=== PATIENT | male | born 2005 | race Caucasian/White ===

== ENCOUNTER 2024-02-22 13:04 | Emergency (ER) | payer MEDICAID ==
[~2024-02-22] VITALS: Ht 172.7 cm; Wt 63.5 kg
[2024-02-22 13:19] VITALS: O2SAT 100
[2024-02-22] MEDS: LIDOCAINE HCL/PF 1% 10 MG/ML 5ML VIAL INFIL ONE (15:00)
[2024-02-22] MEDS: MORPHINE SULFATE 4 MG/ML INJ (FOR IV/IM USE) IV STA (15:04)
[2024-02-22] MEDS: ONDANSETRON HCL 4MG/2ML INJ IV STA (15:04)
[2024-02-22] MEDS: CEFAZOLIN 1000MG PREMIX 50 ML IV ONE (15:34)
[2024-02-22] MEDS: BACITRACIN ZINC OINT UDPKT TOP ONE (15:34)
[2024-02-22] MEDS: TETANUS, DIPHTHERIA, PERTUSSIS VAC/PF 0.5ML (>10YR OLD) IM ONE (15:35)
[2024-02-22 15:41] LABS: BASOPHILS % 0.2 % (0.0-2.0); EOSINOPHILS % 0.8 % (0.0-5.0); HEMATOCRIT. 42.4 % (42.0-52.0); HEMOGLOBIN. 14.1 g/dL (14.0-18.0); LYMPHOCYTES % 21.2 % (20.0-50.0); MEAN CORPUSCULAR HEMOGLOBIN 28.1 pg (28.0-32.0); MEAN CORPUSCULAR HGB CONC 33.1 g/dL (31.0-37.0); MEAN CORPUSCULAR VOLUME 84.7 fL (80.0-94.0); MEAN PLATELET VOLUME 7.5 fl (7.4-10.4); MONOCYTES % 4.9 % (2.0-8.0); NEUTROPHILS % 72.9 % (40.0-76.0); PLATELET 277 x1000/uL (130-400); RED BLOOD CELL COUNT 5.01 mill/uL (4.7-6.1); RED CELL DISTRIBUTION WIDTH 13.6 % (11.6-14.6)
[2024-02-22 15:44] LABS: CHLORIDE 107 mEq/L (98-107); POTASSIUM 3.6 mEq/L (3.5-5.1); SODIUM 139 mEq/L (136-145)
[2024-02-22 15:45] LABS: CARBON DIOXIDE 29 mEq/L (21-32)
[2024-02-22 15:46] LABS: CALCIUM 9.8 mg/dL (8.7-10.4)
[2024-02-22 15:50] LABS: CREATININE 1.1 mg/dL (0.6-1.3); GLUCOSE 100 mg/dL (70-105); UREA NITROGEN BLOOD 11 mg/dL (9-23)
[2024-02-22] MEDS: MORPHINE SULFATE 4 MG/ML INJ (FOR IV/IM USE) IV ONE (18:21)
[2024-02-22 19:30] VITALS: TEMP 36.66960
[2024-02-23] MEDS ORDERED: LIDOCAINE HCL/EPINEPHRINE 1%-EPI 1:100,000 20ML VIAL INFIL ONE (01:15)
[2024-02-23] MEDS ORDERED: CEPH500T MT (01:44)
[2024-02-23 03:12] VITALS: BP 116/74; PULSE 48; RESP 12; O2SAT 96
== END 2024-02-23 03:13 | disposition short-term general hospital (02) ==
LOC: ER 13:15
DX: S61.412A Laceration without foreign body of left hand, initial encounter (principal); X58.XXXA Exposure to other specified factors, initial encounter; Y93.89 Activity, other specified; Y92.89 Other specified places as the place of occurrence of the external cause; Y99.8 Other external cause status
CPT/HCPCS: 80048; 85025; 85610; 86850; 86900; 86901; 36415; 73130; 90715; 12002; 90471; 96365; 96375; 96376; 99285; J0690; J2405; J2270; Z7610 ×4; J3490